=== PATIENT | female | born 1950 | race Caucasian/White ===

== ENCOUNTER 2024-04-06 07:14 | Observation (INO) ==
--- NOTE | 2024-02-29 11:44 | PAT Medication Instructions ---
Medication Instructions Date of Service February 29, 2024 Home Medications acetaminophen 500 mg tablet (Tylenol Extra Strength) 500 - 1,000 mg PO BID PRN Pain calcium carbonate (Tums) 300 mg PO UD PRN Heartburn citalopram 20 mg tablet 20 mg PO HS coffee extract 100 mg-phosphatidyl serine 100 mg capsule (Neuriva Original) 1 cap PO QAM cranberry extract-vitamin C 250 mg-60 mg capsule (Azo Cranberry Plus Vit C) 1 cap PO QAM cyanocobalamin (vitamin B-12) 1,000 mcg tablet,extended release (Vitamin B-12 ER) 1,000 mcg PO QAM ibuprofen 200 mg capsule 600 - 800 mg PO BID PRN Pain simvastatin 20 mg tablet 20 mg PO HS turmeric root extract 500 mg capsule 500 mg PO QAM zolpidem 12.5 mg tablet,extended release,multiphase (Ambien CR) 12.5 mg PO HS MEDICATION INSTRUCTIONS ASK your surgeon for instructions ibuprofen 200 mg capsule 600 - 800 mg PO BID PRN Pain STOP taking 2 weeks before surgery coffee extract 100 mg-phosphatidyl serine 100 mg capsule (Neuriva Original) 1 cap PO QAM cranberry extract-vitamin C 250 mg-60 mg capsule (Azo Cranberry Plus Vit C) 1 cap PO QAM turmeric root extract 500 mg capsule 500 mg PO QAM DO NOT take the morning of surgery calcium carbonate (Tums) 300 mg PO UD PRN Heartburn cyanocobalamin (vitamin B-12) 1,000 mcg tablet,extended release (Vitamin B-12 ER) 1,000 mcg PO QAM Take morning of surgery With a small sip of water, OTHERWISE NOTHING TO EAT OR DRINK AFTER MIDNIGHT: acetaminophen 500 mg tablet (Tylenol Extra Strength) 500 - 1,000 mg PO BID PRN Pain (if needed) Take evening before surgery simvastatin 20 mg tablet 20 mg PO HS citalopram 20 mg tablet 20 mg PO HS zolpidem 12.5 mg tablet,extended release,multiphase (Ambien CR) 12.5 mg PO HS acetaminophen 500 mg tablet (Tylenol Extra Strength) 500 - 1,000 mg PO BID PRN Pain Other Notes If you have any questions please call us at [phone] or [phone] or [phone] or [phone]
--- NOTE | 2024-03-14 12:51 | Anesthesiology Consultation ---
Date of Service March 14, 2024 Assessment & Plan (1) Encounter for pre-operative examination: - Outpatient joint assessment: Patient is currently scheduled for inpatient pathway. If re-evaluated and patient/surgeon requests outpatient pathway, patient is acceptable candidate for outpatient joint program from anesthesia standpoint pending surgeon's office assessment of pt motivation/support/completion of same day joint program preop requirements. Chart Review Chart Review: Acceptable Risk for Surgery and Patient seen in Pre Admission Testing Teaching & Discussion Pre-Anesthesia Teaching/Discussion Notes: Instructed NPO after midnight before surgery, except medications with 15 cc of water. Medication instructions provided according to the PAT guidelines. History Surgery Operation Date: 04/06/24 09:00 Proposed Procedures p Right Total Knee Arthroplasty - Aquilino Marroquin, Height/Weight Height: 5 ft 7 in Weight: 67.9 kg Allergies Allergy/AdvReac Type Severity Reaction Status Date / Time No Known Allergies Allergy Verified 02/29/24 10:50 Medications Home Medications Medication Instructions Recorded Confirmed Last Taken acetaminophen 500 mg tablet 500 - 1,000 mg PO BID PRN Pain 02/29/24 02/29/24 Unknown (Tylenol Extra Strength) calcium carbonate (Tums) 300 mg PO UD PRN Heartburn 02/29/24 02/29/24 Unknown citalopram 20 mg tablet 20 mg PO HS 02/29/24 02/29/24 Unknown coffee extract 100 mg-phosphatidyl 1 cap PO QAM 02/29/24 02/29/24 Unknown serine 100 mg capsule (Neuriva Original) cranberry extract-vitamin C 250 1 cap PO QAM 02/29/24 02/29/24 Unknown mg-60 mg capsule (Azo Cranberry Plus Vit C) cyanocobalamin (vitamin B-12) 1,000 mcg PO QAM 02/29/24 02/29/24 Unknown 1,000 mcg tablet,extended release (Vitamin B-12 ER) ibuprofen 200 mg capsule 600 - 800 mg PO BID PRN Pain 02/29/24 02/29/24 Unknown simvastatin 20 mg tablet 20 mg PO HS 02/29/24 02/29/24 Unknown turmeric root extract 500 mg 500 mg PO QAM 02/29/24 02/29/24 Unknown capsule zolpidem 12.5 mg tablet,extended 12.5 mg PO HS 02/29/24 02/29/24 Unknown release,multiphase (Ambien CR) polyethylene glycol 3350 17 gram 17 g PO QAM 03/14/24 03/14/24 Unknown oral powder packet (Miralax) vitamin C 60 mg-zinc gluconate 5 calli PO 03/14/24 Unknown mg-elderberry fruit 12.5 mg lozenges Additional Notes: Patient was instructed and it was written on provided medication instructions to stop Vitamin [id number] 2 weeks before surgery and to not take miralax the morning of surgery. She verbalized understanding and agreement, denied additional medications/supplements, questions or concerns. Past Medical History Medical History (Updated 03/14/24 @ 13:18 by Kenyatta Poon PA-C) Cervical disc disorder "3 slipping vertebrae" C3/C4/C5 - limited ROM side to side. Foot drop left foot drop (since age 7) Heartburn controlled, stable per pt History of kidney stones (~2006) Osteoarthritis Patient denies h/o stroke, seizures, heart attack, heart failure, DM, HTN, blood clots/DVTs or blood transfusions. Exercise / Class Metabolic Activity II 4-5 Yardwork/Stairs/Walk up hill (denies chest discomfort or shortness of breath with one flight of stairs) Past Family History Family History Mother FHx: ovarian cancer Other No family history of adverse response to anesthesia Past Surgical History Surgical History H/O bilateral oophorectomy H/O foot surgery multiple Left foot surgeries - left foot fusions and also a muscle transfer History of colonoscopy Hx of hysterectomy S/P ankle fusion left S/P cystoscopy with ureteral stent placement Past Anesthesia History No Hx of Anesthesia Complications and No Family Hx of Anesthesia Complications History of PONV No Hx of PONV and No Hx of Motion Sickness Social History Smoking Status: Never smoker Do You Dip or Chew Tobacco: No Hx Alcohol Use: Yes alcohol intake frequency: holidays/special occasions only Hx Substance Use: No substance use type: does not use Review of Systems Snoring, denies witnessed apneas. Patient denies chest pain, shortness of breath, dyspnea on exertion, fever, chills, cough, wheezing, or palpitations. Physical Exam Vital Signs Vitals BP 143/78 P 72 TEMP 98.6 SP02 96% on RA RESP 18 Physical Patient resting comfortably in chair in no acute distress, alert and oriented, responding appropriately throughout visit Full cervical extension range of motion without pain TMD 3.5 finger breadths Mallampati Score 2 Dentition: intact, denies chipped or loose teeth, caps/crowns, implants or bridges Lungs: normal respiratory effort. Good air movement, clear throughout to auscultation, no adventitious breath sounds Cardiac: regular rate and rhythm, no murmurs noted Carotid arteries: negative bruit bilat Lab Results Anesthesia Preop Results Results Anesthesia Widget: WBC 6.43 K/ul (4.8-10.8) 03/14/24 Hgb 13.9 g/dl (12.0-16.0) 03/14/24 Hct 41.9 % (37.0-47.0) 03/14/24 Plt 252 K/uL (130-400) 03/14/24 Na 139 mmol/L (136-145) 03/14/24 K 3.4 mmol/L (3.5-5.1) L 03/14/24 Cl 106 mmol/L (98-107) 03/14/24 CO2 27 mmol/L (21-32) 03/14/24 BUN 14 mg/dl (6-23) 03/14/24 Creat 0.77 mg/dl (0.6-1.2) 03/14/24 Glucose Level 122 mg/dl (70-99(Fasting)) H 03/14/24 PT 10.9 Seconds (9.0-12.0) 03/14/24 PTT 25 Seconds (21-31) 03/14/24 INR 1.0 (0.9-1.1) 03/14/24 Blood Type A Positive 03/14/24 Antibody Screen NEGATIVE 03/14/24 Testing Electrocardiogram Date: 03/14/24 NSR, rate [address] abnormality Chest X-Ray Date: 03/14/24 No acute chest disease.
[~2024-04-06 07:14] MED LIST: ROPIVACAINE 0.5% 5 MG/ML 30 ML VIAL ONE
[2024-04-06] MEDS ORDERED: MIDAZOLAM HCL 1 MG/ML 2ML VIAL ONE (07:36)
[2024-04-06] MEDS ORDERED: fentaNYL citrate PF 100 MCG/2 ML VIAL ONE (07:37)
[2024-04-06] MEDS ORDERED: PROPOFOL IV EMULSION 10 MG/ML 20 ML VIAL IV ONE (07:42)
[2024-04-06] MEDS ORDERED: ONDANSETRON INJ 2 MG/ML 2 ML VIAL ONE (07:42)
[2024-04-06] MEDS ORDERED: LIDOCAINE 2% 2 ML VIAL/AMP(20MG/ML) INFIL ONE (07:42)
--- NOTE | 2024-04-06 07:52 | History & Physical Bridge Note ---
Date of Service April 06, 2024 History & Physical Bridge Note I have examined the patient, reviewed the History & Physical and in the interval since the performance of the History & Physical I have noted the following changes of clinical significance: no changes noted
[2024-04-06] MEDS: GABAPENTIN 300 MG CAP PO SCH (08:15)
[2024-04-06] MEDS: ACETAMINOPHEN 500 MG TAB PO SCH ×2 (08:15→14:57)
[2024-04-06] MEDS: FAMOTIDINE 20 MG TAB PO SCH (08:16)
[2024-04-06] MEDS: dexAMETHasone**PF** 10 MG/ML VIAL IV SCH (08:37)
[2024-04-06] MEDS: LR 500ML BOLUS, THEN 15ML/HR IV SCH (08:37)
[2024-04-06] MEDS ORDERED: HYDROmorphone INJ 1 MG/ML SYRINGE IV PRN (08:38)
[2024-04-06] MEDS ORDERED: ONDANSETRON INJ 2 MG/ML 2 ML VIAL IV PRN ×2 (08:38→11:22)
[2024-04-06] MEDS ORDERED: ePHEDrine sulfate 50 MG/ML AMP IV PRN (08:38)
[2024-04-06] MEDS ORDERED: ATROPINE SULFATE 0.1 MG/ML 10ML SYR IV PRN (08:38)
[2024-04-06] MEDS ORDERED: fentaNYL citrate PF 100 MCG/2 ML VIAL IV PRN (08:38)
[2024-04-06] MEDS: TRANEXAMIC ACID 1,000 MG **IV Pre-op IV SCH (08:56)
[2024-04-06] MEDS: ceFAZolin 2000MG 2,000 MG/15 ML SYR IV SCH ×2 (08:59→16:41)
[2024-04-06] MEDS: ROPIV 0.5% 246mg, Ketorolac 30mg, EPINEPHrine 0.5mg in NSS INFIL SCH (09:45)
[2024-04-06] MEDS: ORTHO JOINT ANESTHETIC ONE (09:45)
[2024-04-06] MEDS: TRANEXAMIC ACID 1,000 MG **IV Intra-op IV SCH (10:06)
--- NOTE | 2024-04-06 10:10 | Operative Report ---
PG Post Operative Report Pre & Post Diagnosis Operation Date: 04/06/24 09:00 Pre-Op Diagnosis: Right Knee Degenerative Joint Disease with retained hardware Post-Op Diagnosis: Right Knee Degenerative Joint Disease with retained hardware I identified the patient and participated in the time-out.: Yes Procedure Operation Date: 04/06/24 09:00 Actual Procedures p Right Total Knee Arthroplasty(Right) with hardware removal- Aquilino Marroquin DO Surgeon Aquilino Marroquin DO Boiler Plant Worker Aquilino Johnson PA-C Estimated Blood Loss 30 Findings Consistent with Post-Op Diagnosis Specimens Right femoral and tibial bone Description of Procedure Implants used: I used a Jackelyn Persona total knee arthroplasty system with a size 7 narrow PS femur, D tibia, 28 oval patella, and a size 14 CPS polyethylene bearing. All components were cemented in place with Biomet cement. Mary arrived [facility] for the above procedure. She was seen in the preoperative holding area and the operative extremity was identified and signed. She was given a preoperative antibiotic, TXA, a spinal anesthetic and an adductor nerve block. She was taken back to the operating room and laid on the table in supine position. She was given basic sedation. The operative knee was then prepped and draped in sterile fashion. A timeout was done, and the patient and the operative extremity was properly identified. A midline incision was made directly over the patella. Dissection was taken down to the extensor mechanism. A subvastus arthrotomy was used. The medial retinaculum was released and the fat pad was mostly excised. The knee was flexed and the ACL, PCL, and meniscus were removed. A drill was sent down the center of the femoral canal followed by an intramedullary theresa. Off that theresa a distal femoral cutting block was placed. 9 mm was resected off the distal femur at 5 of valgus. A posterior referencing AP sizing guide was then placed on the distal femur. The femur measured to be a size 7. 2 drill holes were placed in 3 of external rotation. A 4-in-1 cutting block was then impacted into place. Anterior, posterior, and chamfer cuts were then made. The proximal tibia was then exposed. An external tibial alignment guide was placed. A tibial cut guide was then anchored in place and the proximal tibia was then resected. The anterior lateral epiphyseal staple was uncovered with the tibial cut. The staple was removed with a bone tamp and a mallet. This was the only stable that was in my way. This completed a hardware removal. The posterior aspect of the knee was then opened up and any additional meniscus fragments and osteophytes were removed. The tibia measured to be a size D. The tibial plate was then placed in the appropriate rotation and the tibia was drilled and punched. Trial components were then placed. I used a size 14 CPS polyethylene insert. The knee was brought through a full range of motion and felt to be stable. The peg holes for the femoral component were then drilled. The patella was then everted and 9 mm was resected off the posterior aspect of the patella. The patella measured to be a size 28 oval. 3 peg holes were then drilled. A trial patella was placed. The knee was once again brought through a full range of motion and felt to be stable. Trial components were then removed. The surrounding soft tissues were injected with 100 cc of an orthopedic pain control cocktail. All components were then cemented into place with Biomet cement. The final polyethylene insert was then snapped into place. Once cement was dry the tourniquet was deflated. Hemostasis was obtained. A dilute betadyne lavage was then done for 3 minutes. The joint was then irrigated with normal saline solution. The subvastus arthrotomy was then closed with #1 Vicryl suture. The skin was closed with 2-0 Vicryl, 3-0V lock suture, and ghada. A soft compressive dressing was placed. She was then transferred to a hospital bed and taken to the postanesthesia care unit in stable condition. She tolerated the procedure well. Aquilino Johnson PA-C, was present for the entire procedure. He was critical for patient positioning, prepping, draping, retraction exposure, wound closure and application of sterile dressing. I attest to the content of the Intraoperative Record and any orders documented therein. Any exceptions are noted below.
--- NOTE | 2024-04-06 11:01 | Anesthesiology Progress Note ---
Date of Service April 06, 2024 Anesthesia Post Procedure Vital Signs Vital Signs: Temp Pulse Pulse Resp BP Pulse Ox O2 Del Method 04/06/24 11:00 36.5 C 58 L 13 148/70 H 94 Room Air 04/06/24 10:50 60 12 152/66 H 97 Oxymask 04/06/24 10:40 65 12 152/80 H 99 Oxymask 04/06/24 10:31 36.3 C L 78 15 134/71 95 Oxymask 04/06/24 07:35 36.7 C 80 20 161/102 H 96 Room Air O2 Flow Rate 04/06/24 11:00 04/06/24 10:50 5 04/06/24 10:40 5 04/06/24 10:31 5 04/06/24 07:35 Transfer of Care Handoff Completed per policy Notes Mental Status: alert / awake / arousable and participated in evaluation Patient Amnestic to Procedure: Yes Nausea / Vomiting: adequately controlled Pain: adequately controlled Airway Patency, RR, SpO2: stable & adequate BP & HR: stable & adequate Hydration State: stable & adequate Anesthetic Complications: no major complications apparent and Pt Satisfied with anesthetic care
[2024-04-06] MEDS ORDERED: MAGNESIUM HYDROXIDE SUSP 30 ML UDC PO PRN (11:22)
[2024-04-06] MEDS ORDERED: NALOXONE HCL 0.4 MG/1 ML VIAL/CARP IV PRN (11:22)
[2024-04-06] MEDS ORDERED: HYDROmorphone INJ 0.5 MG/0.5 ML SYR IV PRN (11:22)
[2024-04-06] MEDS ORDERED: METOCLOPRAMIDE HCL INJ 5 MG/ML 2 ML VIAL IV PRN (11:22)
[2024-04-06] MEDS ORDERED: bisacodyL 10 MG SUPP PR PRN (11:22)
[2024-04-06] MEDS: LR 60ML/HR IV SCH (11:25)
[2024-04-06] MEDS: SODIUM CHLORIDE 0.9% 1,000 ML IV SCH (11:42)
--- NOTE | 2024-04-06 12:10 | XRay Report ---
XR knee RT 1 or 2V routine HISTORY: 73 years-old Female Surgical Post Op right knee arthroplasty COMPARISON: 03/14/2024 TECHNIQUE: 2 views of the right knee. FINDINGS: Total joint arthroplasty with patellar resurfacing. Anterior midline skin ghada with expected posto perative soft tissue swelling and deep tissue air. Metallic staple-like devices are again noted withi n the medial tibial plateau. Demineralized appearance of the bones. IMPRESSION: Satisfactory alignment of the total joint arthroplasty. ACT 112: Negative or not required by law. The above report was generated using voice recognition software. It may contain grammatical, syntax o r spelling errors. Electronically signed by: Vipul Billingsley M.D. 04/06/2024 12:09 PM
[2024-04-06] MEDS: KETOROLAC TROMETHAMINE 15 MG/ML VIAL IV SCH (12:30)
[2024-04-06] MEDS: oxyCODONE HCL IR 5 MG TAB (IMMEDIATE RELEASE) PO PRN (16:44)
[2024-04-06] MEDS: CITALOPRAM 20 MG TAB PO SCH (20:12)
[2024-04-06] MEDS: SIMVASTATIN 20 MG TAB PO SCH (20:13)
[2024-04-06] MEDS: SENNA 8.6 MG TAB PO SCH (20:13)
[2024-04-06] MEDS: ASPIRIN 81 MG ECTAB PO SCH (20:13)
[2024-04-06] MEDS: DOCUSATE SODIUM 100 MG CAP PO SCH (20:13)
[2024-04-06] MEDS: ZOLPIDEM TARTRATE 5 MG TAB PO SCH (21:36)
[2024-04-07] MEDS: dexAMETHasone 4 MG TAB PO SCH (07:18)
[2024-04-07] MEDS: MULTIVITAMIN TAB PO SCH (08:03)
--- NOTE | 2024-04-07 08:18 | Orthopedic Progress Note ---
Date of Service April 07, 2024 Assessment & Plan (1) Status post right knee replacement: Overall she is doing very well. She is not having much pain in the right knee. She will be seen by physical therapy today for ambulation and range of motion exercises. The nursing staff can change her dressing after physical therapy. She is on aspirin for DVT prophylaxis. She can be discharged home later today. She will follow-up with orthopedics in 2 weeks. Blessing Hernandez was seen and examined at bedside this morning. Overall she is doing very well. She is not having much pain in the right knee. She has been up and ambulating to the bathroom. She has no complaints.. Review of Systems All systems reviewed & are unremarkable except as noted in HPI & below. Physical Exam On physical examination of right knee, the dressing is clean and dry. Her leg is out in full extension. She has active dorsiflexion plantarflexion of her right ankle.. Results & Data Results & Data Laboratory Results . Diagnostic Findings Postoperative x-rays of the right knee show the prosthesis to be in anatomic alignment without any evidence of fracture complication, or loosening.. PG Care Time/CCT Total # of Minutes Spent Total Time Spent with Patient: Total time spent is greater than 50% in coordination of care (as documented) at patient's floor/unit and/or counseling patient: Coding Level of Care Code 44169 Post Operative Follow-Up Diagnoses Status post right knee replacement Z96.651
--- NOTE | 2024-04-07 08:19 | Discharge Summary ---
Date of Service April 07, 2024 Principal Diagnosis Same as "Discharge Diagnosis" noted below under Discharge Instructions. Discharge Exam On physical examination of right knee, the dressing is clean and dry. Her leg is out in full extension. She has active dorsiflexion plantarflexion of her right ankle.. Discharge Data Procedures Performed Operation Date: 04/06/24 09:00 Actual Procedures p Right Total Knee Arthroplasty with hardware removal(Right) - Aquilino Marroquin DO Ordered Studies 04/06/24 05:00 US - OR guided needle placemen Routine Hospital Course (1) Status post right knee replacement: On April 06, 2024 Mary arrived at [facility] and underwent a right knee replacement without complication. She had a spinal anesthetic. Postoperatively she was started on aspirin for DVT prophylaxis and transferred to the general orthopedic floors. Her hospital course was uneventful. On postop day #1, her vital signs were stable and her pain was well-controlled. She was able to participate well with physical therapy doing ambulation and range of motion exercises. She was then discharged home. She will follow-up with orthopedics in 2 weeks. PG Care Time/CCT Total # of Minutes Spent Total Time Spent with Patient: Total time spent is greater than 50% in coordination of care (as documented) at patient's floor/unit and/or counseling patient: Discharge Plan Discharge Items Patient Disposition: Home - Self-Care Reason For Visit: Right Knee Degenerative Joint Disease Discharge Diagnosis: Right knee replacement Activity: Per Instructions section Non-emergency contact: Surgeon Call non-emergency contact if: your wound has increased redness and your wound has increased drainage Follow-up/Referrals: Quiana Cortes MD [Primary Care Provider] - Diet: Regular Addtl Attending Provider Instructions: Activity and Therapy Recommendations: * If you are using [facility] then therapy will be provided at your home until they feel you have accomplished all of your goals. * If you are using [facility] then Physical Therapy will be provided until they feel you are ready to start Outpatient Physical Therapy. * If you are not using home therapy then Outpatient Physical Therapy should start about 3-5 days from your day of surgery. Therapy will last about 6-10 weeks * It is important not to put a pillow under your knee when you are relaxing or sleeping. It is just as important to make sure you are getting your knee perfectly straight as it is to regain your knee bend. * You were shown a series of exercises in the hospital. Do these exercises three times each day including the exercises you were shown in physical therapy. * Get up and walk several times each day. For the first four weeks, try not to stand or walk for more than one hour at a time. If you do stand or walk for more than one hour, you will not hurt anything, but your leg will likely swell. * As you feel comfortable, you may change from the walker or crutches to a cane and then to independent walking. Medications: * Narcotic You will likely be sent home from the hospital with a prescription for the narcotic pain medication that worked best throughout your stay. * Cefadroxil -take the antibiotic twice a day for 10 days to help prevent inf ection. * Aspirin Most patients will be required to take Aspirin 81mg twice a day for 6 weeks after surgery. This is obtained [id number] and a prescription is not necessary. * Other medications may be prescribed for specific circumstances. If you have any questions, please call the office at . * Resume previous home medications unless otherwise instructed TEDs/Elastic Stockings: The white elastic stockings help limit swelling and prevent blood clots from forming in your legs.~ The more you wear them, the more they work. Wear them for six weeks. Dressing Care: The dressing can be changed after physical therapy on postop day #1. Daily dry dressing changes for a few days, especially if the incision is still draining some. If the incision is not draining then you may leave the ghada open to air. If there is a little bit of drainage or if the ghada are getting stuck on your clothing then cover the incision with a dry dressing. The ghada will be removed at your 2 week follow-up appointment. Showering: You may shower 5 days from the day of surgery as long as the incision is no longer draining. You may shower with the ghada exposed. Let soapy water run over the ghada and pat them dry. Do not scrub or soak the incision. Things To Watch For: * Drainage from the incision site that occurs more than one week after your surgery. * Increased redness at the incision site. * Fever above 102 degrees Fahrenheit. * Unusual chest pain or shortness of breath. * Call [facility] at with any of the above problems Follow-Up Visit: Follow-up with Dr. Marroquin's PA (Aquilino Johnson) 2-3 weeks after your day of surgery. He will remove your ghada and answer any questions. If you have any additional questions or concerns, Dr Marroquin is usually in the office at the same time and will be available An appointment was probably scheduled when you signed-up for surgery in the office. If you have any questions call Office Instructions: More detailed instructions as well as Frequently Asked Questions were provided in a folder by our office when you signed-up for surgery. Please review these instructions when you get home. If you have any further questions or concerns, please feel free to call the office at [phone] Pending Studies at Discharge: No Stand-Alone Forms: My [facility] [employer], Smoking Cessation Medications and DC Order Prescriptions: New oxycodone 5 mg Tablet 5 mg PO Q4H PRN (Reason: pain) Qty: 30 0RF cefadroxil 500 mg capsule 500 mg PO BID 10 Days Qty: 20 0RF aspirin 81 mg Tablet,Delayed Release (Dr/Ec) 81 mg PO BID 42 Days Qty: 0 0RF Continued cyanocobalamin (vitamin B-12) [Vitamin B-12] 1,000 mcg Tablet Extended Release 1,000 mcg PO QAM citalopram 20 mg Tablet 20 mg PO HS simvastatin 20 mg Tablet 20 mg PO HS zolpidem [Ambien CR] 12.5 mg Tablet,Ext Release Multiphase 12.5 mg PO HS turmeric root extract 500 mg Capsule 500 mg PO QAM cranberry extract-vitamin C [Azo Cranberry Plus Vit C] 250-60 mg Capsule 1 cap PO QAM Neuriva Original 100-100 mg Capsule 1 cap PO QAM ibuprofen 200 mg Capsule 600 - 800 mg PO BID PRN (Reason: Pain) acetaminophen [Tylenol Extra Strength] 500 mg Tablet 500 - 1,000 mg PO BID PRN (Reason: Pain) Tums 300 mg (750 mg) Tablet,Chewable 300 mg PO UD PRN (Reason: Heartburn) polyethylene glycol 3350 [Miralax] 17 gram Powder In Packet 17 g PO QAM vit C-zinc gluc-elderberry 60-5-12.5 mg Lozenge PO Discharge Orders: Discharge Order (Routine); Ordered 04/07/24 Ordered By: Aquilino Marroquin Admission Data Admit Date/Time: 04/06/24 10:34 Attending Provider: Aquilino Marroquin Admit Provider: Aquilino Marroquin Primary Care Provider: Quiana Cortes V.
== END 2024-04-07 10:22 | disposition home or self-care (01) ==
LOC: ASU 07:14 → 3W 07:14